=== PATIENT | male | born 1950 | race Caucasian/White ===

== ENCOUNTER 2024-09-04 19:28 | Observation (INO) | payer MEDICARE, SELFPAY ==
[2024-09-04 22:08] VITALS: BMI 42.2
[2024-09-04 22:20] VITALS: BP 131/81; PULSE 79; TEMP 36.8; O2SAT 93
[2024-09-04 22:58] LABS: Glucometer 161 mg/dL (74-106)
[2024-09-05 03:50] VITALS: BP 133/76; PULSE 80; TEMP 36.6; O2SAT 94
[2024-09-05] MEDS: OXYBUTYNIN chloride 5 MG TABLET PO ×2 (05:21→21:26)
[2024-09-05 06:27] LABS: Basophils Absolute Auto 0.1 10^3/uL (0.0-0.1); Eosinophils Absolute Auto 0.5 10^3/uL (0.0-0.7); Eosinophils Percent Auto 6.9 % (0.9-7.0); Hematocrit 44.6 % (42.0-54.0); Hemoglobin 14.8 g/dL (14.0-18.0); Immature Granulocytes Abs Auto 0.02 10^3/uL (0.00-0.03); Immature Granulocytes Pct Auto 0.3 % (0.0-0.5); Lymphocytes Absolute Auto 1.2 10^3/uL (1.2-3.8); Lymphocytes Percent Auto 16.5 % (20.5-60.0); Mean Corpuscular HGB Conc 33.2 g/dL (29.9-35.2); Mean Corpuscular Hemoglobin 31.8 pg (25.9-34.0); Mean Corpuscular Volume 95.7 fL (80.0-94.0); Mean Platelet Volume 10.3 fL (9.5-13.5); Monocytes Absolute Auto 1.3 10^3/uL (0.3-0.8); Monocytes Percent Auto 18.5 % (1.7-12.0); Neutrophils Absolute Auto 4.1 10^3/uL (1.4-6.5); Neutrophils Percent Auto 56.8 % (43.0-75.0); Platelet Count 171 10^3/uL (150-450); Red Blood Count 4.66 10^6/uL (4.70-6.10); Red Cell Distribution Width 14.1 % (11.0-15.0); White Blood Count 7.2 10^3/uL (4.0-11.0)
[2024-09-05 06:44] LABS: Alanine Aminotransferase 26 U/L (16-63); Albumin Globulin Ratio 0.6; Albumin Level 2.9 g/dL (3.4-5.0); Alkaline Phosphatase 81 U/L (46-116); Anion Gap 13.5; Aspartate Amino Transferase 54 U/L (15-37); BUN Creatinine Ratio 12.4; Bilirubin Total 1.1 mg/dL (0.2-1.0); Calcium 9.1 mg/dL (8.5-10.1); Carbon Dioxide 26.7 mmol/L (21.0-32.0); Chloride 98 mmol/L (98-107); Estimated GFR (African America >60 (>=60 mL/min/1.73m^2); Estimated GFR (Non-African Ame 51 (>=60 mL/min/1.73m^2); Globulin 5.1 g/dL; Glucose 155 mg/dL (74-106); Potassium 4.2 mmol/L (3.5-5.1); Sodium 134 mmol/L (136-145)
[2024-09-05 07:28] LABS: Glucometer 173 mg/dL (74-106)
[2024-09-05 07:37] VITALS: BP 131/78; PULSE 80; TEMP 36.9; O2SAT 93
[2024-09-05] MEDS: INSULIN ASPART 300 UNIT/3 ML PEN SUBQ ×3 (07:58→21:26)
[2024-09-05] MEDS: CHOLECALCIFEROL (VITAMIN D3) 25 MCG/1,000 UNITS TABLET PO ×2 (08:12→21:26)
[2024-09-05] MEDS: CLOPIDOGREL BISULFATE 75 MG TABLET PO (08:13)
[2024-09-05] MEDS: ACETAMINOPHEN 325 MG TABLET 650 MG PO ×2 (08:24→19:31)
--- NOTE | 2024-09-05 10:54 | CM.NOTE ---
Rounds made with Dr. Carrillo, discussed with pt and son reason for admission to hospital and plan of care. Pt will have PT and OT evaluate pt today for discharge planning. Pt is open to skilled therapy at discharge, son verbalizes pt has had some falls recently at home and is concerned with pt's increased weakness.
--- NOTE | 2024-09-05 11:34 | CM.NOTE ---
Medicare Outpatient Observation Notice discussed with pt, pt verbalizes understanding and signs paper. Original given to pt and copy placed on pt's chart.
[2024-09-05] MEDS: CEFTRIAXONE 1,000 MG in 0.9 % SODIUM CHLORIDE 50 ML 100 MG IV (12:13)
[2024-09-05] MEDS: LACTATED RINGER'S SOLUTION 1,000 ML 100 ML IV (12:13)
[2024-09-05 12:18] LABS: Glucometer 169 mg/dL (74-106)
--- NOTE | 2024-09-05 12:25 | P.HP_ITS ---
HPI H&P: HPI History of Present Illness Chief complaint: UTI Narrative: 73-year-old male who currently lives at home was transferred from outside hospital. He originally presented to ER for generalized weakness and confusion. The reason for the transfer was no bed availability for admission. According to the report, patient has been increasingly weak, tired and is staying in bed for past 2 to 3 days. It was reported that his urine has been darker and foul- smelling. He had 1 episode of vomiting at the day he presented to ED. Otherwise he denies any active complaints. According to ED report, patient could tell only his name but otherwise he was unable to provide any meaningful information and was confused. Patient has prior history of stroke with right- sided weakness along with aphasia/dysarthria. Workup in ER included CT head/urine drug screen, urine analysis along with CBC/CMP that revealed no acute finding other than urinary tract infection. Patient started on IV Rocephin and admitted for change in mentation/metabolic encephalopathy likely secondary to dehydration/generalized weakness and UTI. Patient was seen earlier today and he reports feeling overall better. His mentation is at his baseline and he has no confusion. He feels overall weak. Denies chest pain, shortness of breath, abdominal pain, constipation, diarrhea, fever, chills. Opioid HPI Opioid Management Most Recent Pain and Opioid Data: Last Pain Scale 3 09/05/24 10:48 09/05/24 Last Pain Intensity 3 09/05/24 10:48 09/05/24 Last Pain Assessment 09/05/24 10:49 Last MAR Pain Assessment 09/05/24 10:29 Last ORT Total Score 0 09/04/24 22:08 09/04/24 Last ORT Risk Category Low Risk 09/04/24 22:08 09/04/24 Review of Systems ROS Status of ROS 10 or more systems reviewed and unremark able except as noted in history and below [facility] Medical History (Updated 09/05/24 @ 12:32 by Shaikh Gerardo MD) H/O stroke without residual deficits ?Z86.73 - Personal history of transient ischemic attack (TIA), and cerebral infarction without residual deficits (ICD-10) Iron deficiency anemia ?D50.9 - Iron deficiency anemia, unspecified (ICD-10) Hard of hearing ?H91.90 - Unspecified hearing loss, unspecified ear (ICD-10) Vertigo ?R42 - Dizziness and giddiness (ICD-10) Diabetes ?E11.9 - Type 2 diabetes mellitus without complications (ICD-10) Restrictive lung disease ?J98.4 - Other disorders of lung (ICD-10) Restless leg syndrome ?G25.81 - Restless legs syndrome (ICD-10) Atrial fibrillation ?I48.91 - Unspecified atrial fibrillation (ICD-10) Sleep apnea ?G47.30 - Sleep apnea, unspecified (ICD-10) Overactive bladder ?N32.81 - Overactive bladder (ICD-10) Obesity ?E66.9 - Obesity, unspecified (ICD-10) Lumbar radiculopathy ?M54.16 - Radiculopathy, lumbar region (ICD-10) Insomnia ?G47.00 - Insomnia, unspecified (ICD-10) Hypertension ?I10 - Essential (primary) hypertension (ICD-10) Hyperlipidemia ?E78.5 - Hyperlipidemia, unspecified (ICD-10) Pulmonary embolism ?I26.99 - Other pulmonary embolism without acute cor pulmonale (ICD-10) CVA (cerebral vascular accident) ?I63.9 - Cerebral infarction, unspecified (ICD-10) Hemiparesis ?G81.90 - Hemiplegia, unspecified affecting unspecified side (ICD-10) Weakness ?R53.1 - Weakness (ICD-10) Eczema ?L30.9 - Dermatitis, unspecified (ICD-10) Diastolic dysfunction ?I51.89 - Other ill-defined heart diseases (ICD-10) Cervical spinal stenosis ?M48.02 - Spinal stenosis, cervical region (ICD-10) CAD (coronary artery disease) ?I25.10 - Atherosclerotic heart disease of [place] coronary artery without angina pectoris (ICD-10) BPH (benign prostatic hyperplasia) ?N40.0 - Benign prostatic hyperplasia without lower urinary tract symptoms (ICD-10) Surgical History (Updated 09/04/24 @ 22:40 by Marlin Gonzales) H/O cystoscopy ?Z98.890 - Other specified postprocedural states (ICD-10) History of knee replacement ?Z96.659 - Presence of unspecified artificial knee joint (ICD-10) H/O carotid endarterectomy ?Z98.890 - Other specified postprocedural states (ICD-10) History of appendectomy ?Z90.49 - Acquired absence of other specified parts of digestive tract (ICD- 10) Hx of CABG ?Z95.1 - Presence of aortocoronary bypass graft (ICD-10) Family History (Updated 09/04/24 @ 22:44 by Marlin Gonzales) Brother Family history of CHF (congestive heart failure) Family history of diabetes mellitus Sister Family history of cancer Family history of diabetes mellitus Mother Family history of myocardial infarction Social History (Updated 09/04/24 @ 22:42 by Marlin Gonzales) Within the past year, how often did you have a drink containing alcohol: monthly or less Within the past year, how many standard drinks containing alcohol did you have on a typical day: 1 or 2 Total score: 0 Score interpretation: A score less than 4 is consistent with normal alcohol consumption. Smoking status: Never smoker Non-prescribed substance use: denies use Previous occupational history: retired Highest level of school completed/degree received: high school graduate Little interest or pleasure in doing things: not at all Feeling down, depressed, or hopeless: not at all Do you think of yourself as: straight/heterosexual Gender Identity: male Meds Home Medications and Allergies Home Medications ?Medication ?Instructions ?Recorded ?Confirmed ?Type atorvastatin 20 mg tablet (Lipitor) 20 mg PO QPM 09/04/24 09/04/24 History cholecalciferol (vitamin D3) 25 25 mcg PO BID 09/04/24 09/04/24 History mcg (1,000 unit) tablet (Vitamin D3) clopidogrel 75 mg tablet (Plavix) 75 mg PO DAILY 09/04/24 09/04/24 History furosemide 40 mg tablet (Lasix) 40 mg PO DAILY 09/04/24 09/04/24 History gabapentin 300 mg capsule 300 mg PO TID 09/04/24 09/04/24 History lisinopril 2.5 mg tablet 2.5 mg PO DAILY 09/04/24 09/04/24 History meclizine 12.5 mg tablet 12.5 mg PO TID PRN dizziness 09/04/24 09/04/24 History metformin 500 mg tablet,extended 500 mg PO DAILY 09/04/24 09/04/24 History release 24hr (osmotic) ondansetron 4 mg disintegrating 4 mg PO Q6H PRN nausea and vomiting 09/04/24 09/04/24 History tablet oxybutynin chloride 5 mg tablet 5 mg PO TID 09/04/24 09/04/24 History polyethylene glycol 3350 17 17 g PO DAILY PRN constipation 09/04/24 09/04/24 History gram/dose oral powder (Miralax) sulfamethoxazole 800 1 tab PO Q12H 09/04/24 09/04/24 History mg-trimethoprim 160 mg tablet trazodone 50 mg tablet 50 mg PO .hs 09/04/24 09/04/24 History Allergies Allergy/AdvReac Type Severity Reaction Status Date / Time adhesive tape Allergy Mild Rash Verified 09/04/24 22:28 Exam Constitutional Vital Signs, click to edit/add: Last Vital Signs Temp 98.4 F 09/05/24 07:37 Pulse 80 09/05/24 07:37 Resp 18 09/05/24 07:37 BP 131/78 09/05/24 07:37 Pulse Ox 93 L 09/05/24 07:37 O2 Del Method Room Air 09/05/24 07:37 Documenting provider has reviewed patient's vital signs: yes Common normals: no apparent distress and oriented x3 General appearance: cooperative HENMT Common normals: normocephalic and head/scalp atraumatic Head and scalp: normocephalic and atraumatic Eye Common normals: conjunctivae normal and no scleral icterus Conjunctiva: conjunctiva(e) normal Respiratory Common normals: normal respiratory effort and clear to auscultation bilaterally Effort & inspection: able to speak in complete sentences Auscultation: clear to auscultation bilaterally Cardio Common normals: regular rate, S1 normal heart sound and S2 normal heart sound Rate: regular rate Heart sounds: S1 normal and S2 normal GI Common normals: Normal to inspection, nondistended, normoactive bowel sounds present, soft to palpation, non-tender and no hepatosplenomegaly Palpation: soft and no hepatosplenomegaly Extremity Common normals: no clubbing, cyanosis or edema Neuro Common normals: oriented x3 Other: Mild dysarthria noted. RLE weakness. Psych Common normals: mental status grossly normal, denies hallucinations, denies homicidal ideation and denies suicidal ideation Results Labs Labs: Short CBC 09/05/24 Range/Units 05:51 WBC 7.2 (4.0-11.0) 10^3/uL Hgb 14.8 (14.0-18.0) g/dL Hct 44.6 (42.0-54.0) % Plt Count 171 (150-450) 10^3/uL BMP 09/05/24 05:51 Sodium 134 L Potassium 4.2 Chloride 98 Carbon Dioxide 26.7 BUN 17.0 Creatinine 1.37 H Glucose 155 H Calcium 9.1 Liver Function 09/05/24 Range/Units 05:51 Total Bilirubin 1.1 H (0.2-1.0) mg/dL AST 54 H (15-37) U/L ALT 26 (16-63) U/L Alkaline Phosphatase 81 (46-116) U/L Albumin 2.9 L (3.4-5.0) g/dL Assessment and Plan Assessment and Plan (1) UTI (urinary tract infection): Assessment and Plan: Started patient on IV Rocephin. Follow-up urine cultures. Qualifiers: Urinary tract infection type: acute cystitis Hematuria presence: without hematuria Qualified Code(s): N30.00 - Acute cystitis without hematuria (2) Generalized weakness: Assessment and Plan: PT/OT evaluation. Will likely need shelter facility placement once medically stable for discharge. (3) H/O stroke without residual deficits: Assessment and Plan: Patient has residual right upper and lower extremity weakness. PT/OT evaluation. Continue with statin, Plavix. (4) CAD (coronary artery disease): Assessment and Plan: No evidence of active cardiac ischemia. Continue with Plavix, statin Qualifiers: Coronary Disease-Associated Artery/Lesion type: [place] artery [place] vs. transplanted heart: [place] heart Associated angina: without angina Qualified Code(s): I25.10 - Atherosclerotic heart disease of [place] coronary artery without angina pectoris (5) Diabetes: Assessment and Plan: Sliding scale sling while inpatient. Qualifiers: Diabetes mellitus type: type 2 Diabetes mellitus intermediate insulin use: without remote computer terminal operator use Diabetes mellitus complication status: without complication Qualified Code(s): E11.9 - Type 2 diabetes mellitus without complications (6) Hemiparesis: Assessment and Plan: Chronic, unchanged. PT/OT Qualifiers: Hemiparesis etiology: late effect of cerebrovascular disease Cerebrovascular disease type: cerebral infarction Hemiparesis laterality: right dominant side Qualified Code(s): 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 (7) Hypertension: Assessment and Plan: Hold lisinopril for now. Continue with IV hydration. Monitor blood pressure. Qualifiers: Hypertension type: primary hypertension Qualified Code(s): I10 - Essential (primary) hypertension (8) Hyperlipidemia: Assessment and Plan: Continue Lipitor Qualifiers: Hyperlipidemia type: unspecified Qualified Code(s): E78.5 - Hyperlipidemia, unspecified Urinary Catheter Management Urinary Catheter Management Pure Wick: Cath placed during this visit: yes Urethral indwelling: No Insertion date: 09/04/24 Insertion time: 18:00
--- NOTE | 2024-09-05 12:32 | SWNOTE1 ---
SW spoke to case management and pt was at [facility] in past and does need rehab and pt/family would like the [facility]. LUIS spoke to Raeann at [facility] and she voiced to send referral over. Referral sent to [facility]. Referral included face sheet, paperwork from [facility], case management report, nursing notes, diagnostic imaging, med list, and PT notes.
[2024-09-05 14:36] VITALS: BP 147/78; PULSE 76; TEMP 36.6; O2SAT 93
--- NOTE | 2024-09-05 14:56 | SWNOTE1 ---
[facility] was able to accept, but LUIS received a phone call from Milli at [facility]. She states she spoke with pt's sister and they goal is for [facility] to [facility]. She stated pt could also benefit from going to a facility that has VA benefits as the [facility] does not. If pt goes past 20 days then he will have a co-pay if he does not go to facility with VA benefits. She stated the closest is [facility]. She also stated that LUIS needs to print VA home curry off for pt and sister. LUIS requested Milli send her one as LUIS does not have most recent. Milli to send. LUIS spoke to pt, pt's sister, and pt's son in room. Pt's son was on phone. LUIS explained to everyone the benefit of going to facility with VA benefits and the closest one being [facility] in [place]. Pt's son and pt agreed they want SW to try there first. [facility] second. They did voice the [facility] [place]. LUIS did [facility] and provided to sister. Pt's sister did ask for assistance in filling out, but LUIS advised she will need his medical background and also all of financial information. She stated she will give to pt's son. Milli did tell pt's sister that there is not much of a delay at this time getting people in to [facility] home. LUIS then advised pt, pt's sister, and pt's son that LUIS has to reach out to [facility] and see if they have openings. LUIS called and emailed Isela at [facility], she will review and let LUIS know. LUIS updated Milli and she voiced she will need a form completed and will need information sent to her. She will then submit and be in contact with Isela robles then Isela and LUIS will coordinate discharge. Pt will need to get approved.
--- NOTE | 2024-09-05 15:12 | SWNOTE1 ---
Referral has been sent to [facility] and Milli at [facility] for them to review.
--- NOTE | 2024-09-05 15:25 | SWNOTE1 ---
SW spoke to M[facility] at [facility]. SW had to forward the information on to [facility] and they have to approve and pt's VA doctor has to approve. Milli will continue to check in and let SW know when they have the approval. LUIS waiting to hear from Isela at [facility] as well.
[2024-09-05 17:48] VITALS: BP 90/52; PULSE 66; TEMP 36.5; O2SAT 93
[2024-09-05] MEDS: ATORVASTATIN CALCIUM 20 MG TABLET PO (19:31)
[2024-09-05 19:39] VITALS: BP 101/67; PULSE 79; TEMP 36.7; O2SAT 90
[2024-09-05 20:09] LABS: Glucometer 166 mg/dL (74-106)
[2024-09-05] MEDS: TRAZODONE HCL 50 MG TABLET PO (21:26)
[2024-09-05 23:04] VITALS: BP 133/73; PULSE 67; TEMP 36.4; O2SAT 93
[2024-09-06] MEDS: ACETAMINOPHEN 325 MG TABLET 650 MG PO ×3 (03:07→21:11)
[2024-09-06 03:11] VITALS: BP 113/64; PULSE 76; TEMP 36.3; O2SAT 92
[2024-09-06] MEDS: LACTATED RINGER'S SOLUTION 1,000 ML 100 ML IV (05:05)
[2024-09-06] MEDS: OXYBUTYNIN chloride 5 MG TABLET PO ×3 (05:05→21:11)
[2024-09-06 05:55] LABS: Basophils Absolute Auto 0.1 10^3/uL (0.0-0.1); Eosinophils Absolute Auto 0.5 10^3/uL (0.0-0.7); Eosinophils Percent Auto 7.7 % (0.9-7.0); Hematocrit 39.5 % (42.0-54.0); Immature Granulocytes Abs Auto 0.02 10^3/uL (0.00-0.03); Immature Granulocytes Pct Auto 0.3 % (0.0-0.5); Lymphocytes Absolute Auto 2.9 10^3/uL (1.2-3.8); Lymphocytes Percent Auto 49.8 % (20.5-60.0); Mean Corpuscular HGB Conc 32.9 g/dL (29.9-35.2); Mean Corpuscular Hemoglobin 31.6 pg (25.9-34.0); Mean Corpuscular Volume 96.1 fL (80.0-94.0); Monocytes Percent Auto 16.7 % (1.7-12.0); Neutrophils Absolute Auto 1.4 10^3/uL (1.4-6.5); Neutrophils Percent Auto 24.5 % (43.0-75.0); Platelet Count 158 10^3/uL (150-450); Red Blood Count 4.11 10^6/uL (4.70-6.10); Red Cell Distribution Width 13.8 % (11.0-15.0); White Blood Count 5.9 10^3/uL (4.0-11.0)
[2024-09-06 06:14] LABS: Alanine Aminotransferase 18 U/L (16-63); Albumin Globulin Ratio 0.6; Albumin Level 2.5 g/dL (3.4-5.0); Alkaline Phosphatase 74 U/L (46-116); Anion Gap 12.6; Aspartate Amino Transferase 45 U/L (15-37); BUN Creatinine Ratio 14.5; Bilirubin Total 0.7 mg/dL (0.2-1.0); Calcium 8.6 mg/dL (8.5-10.1); Carbon Dioxide 24.4 mmol/L (21.0-32.0); Chloride 101 mmol/L (98-107); Estimated GFR (African America >60 (>=60 mL/min/1.73m^2); Estimated GFR (Non-African Ame >60 (>=60 mL/min/1.73m^2); Globulin 4.3 g/dL; Glucose 140 mg/dL (74-106); Sodium 134 mmol/L (136-145); Total Protein 6.8 g/dL (6.4-8.2)
[2024-09-06] MEDS: CLOPIDOGREL BISULFATE 75 MG TABLET PO (08:24)
[2024-09-06] MEDS: CHOLECALCIFEROL (VITAMIN D3) 25 MCG/1,000 UNITS TABLET PO ×2 (08:24→20:03)
[2024-09-06] MEDS: POLYETHYLENE GLYCOL 3350 17 GM POWDER PACKET PO (08:26)
[2024-09-06 08:44] VITALS: BP 136/86; PULSE 76; TEMP 36.4; O2SAT 97
--- NOTE | 2024-09-06 10:12 | PM.IMPN1 ---
Progress Note: A&P Assessment and Plan (1) UTI (urinary tract infection): Assessment and Plan: Continue with IV Rocephin. Follow-up urine cultures. Qualifiers: Urinary tract infection type: acute cystitis Hematuria presence: without hematuria Qualified Code(s): N30.00 - Acute cystitis without hematuria (2) Generalized weakness: Assessment and Plan: Secondary to UTI and dehydration. Continue with PT/OT. Will need placement for rehab (3) H/O stroke without residual deficits: Assessment and Plan: Continue with PT/OT. Continue with Plavix, statin (4) CAD (coronary artery disease): Assessment and Plan: No evidence of active cardiac ischemia. Monitor. Qualifiers: Coronary Disease-Associated Artery/Lesion type: [place] artery [place] vs. transplanted heart: [place] heart Associated angina: without angina Qualified Code(s): I25.10 - Atherosclerotic heart disease of [place] coronary artery without angina pectoris (5) Diabetes: Assessment and Plan: Sliding scale insulin while inpatient. Qualifiers: Diabetes mellitus type: type 2 Diabetes mellitus residential insulin use: without residential use Diabetes mellitus complication status: without complication Qualified Code(s): E11.9 - Type 2 diabetes mellitus without complications (6) Hemiparesis: Assessment and Plan: PT/OT. Will need rehab placement Qualifiers: Hemiparesis etiology: late effect of cerebrovascular disease Cerebrovascular disease type: cerebral infarction Hemiparesis laterality: right dominant side Qualified Code(s): 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 (7) Hypertension: Assessment and Plan: Blood pressure is stable. Monitor. Qualifiers: Hypertension type: primary hypertension Qualified Code(s): I10 - Essential (primary) hypertension (8) Hyperlipidemia: Assessment and Plan: continue With Lipitor Qualifiers: Hyperlipidemia type: unspecified Qualified Code(s): E78.5 - Hyperlipidemia, unspecified Internal Medicine - PN: Subj Subjective Interval history: Seen and examined. No overnight events. Doing well overall. Exam Constitutional Vital Signs, click to edit/add: Last Vital Signs Temp 97.6 F 09/06/24 08:44 Pulse 76 09/06/24 08:44 Resp 18 09/06/24 08:44 BP 136/86 09/06/24 08:44 Pulse Ox 97 09/06/24 08:44 O2 Del Method Room Air 09/06/24 08:44 Documenting provider has reviewed patient's vital signs: yes Common normals: no apparent distress and oriented x3 General appearance: cooperative Respiratory Common normals: normal respiratory effort and clear to auscultation bilaterally Effort & inspection: able to speak in complete sentences Auscultation: clear to auscultation bilaterally Cardio Common normals: regular rate, S1 normal heart sound and S2 normal heart sound Rate: regular rate Heart sounds: S1 normal and S2 normal Extremity Common normals: no clubbing, cyanosis or edema Neuro Common normals: oriented x3 Other: Mild dysarthria noted. RLE weakness. Psych Common normals: mental status grossly normal, denies hallucinations, denies homicidal ideation and denies suicidal ideation Internal Medicine - PN: Obj Da Labs Labs: Laboratory Results - last 24 hr 09/05/24 09/05/24 09/06/24 12:15 20:07 05:42 WBC 5.9 RBC 4.11 L Hgb 13.0 L Hct 39.5 L MCV 96.1 H MCH 31.6 MCHC 32.9 RDW 13.8 Plt Count 158 MPV 10.0 Neut % (Auto) 24.5 L Lymph % (Auto) 49.8 [place] % (Auto) 16.7 H Eos % (Auto) 7.7 H Baso % (Auto) 1.0 Neut # (Auto) 1.4 Lymph # (Auto) 2.9 [place] # (Auto) 1.0 H Eos # (Auto) 0.5 Baso # (Auto) 0.1 Abs Immat Gran (auto) 0.02 Imm/Tot Granulo (auto) 0.3 Sodium 134 L Potassium 4.0 Chloride 101 Carbon Dioxide 24.4 Anion Gap 12.6 BUN 17.0 Creatinine 1.17 Est GFR ( Amer) >60 Est GFR (Non-Af Amer) >60 BUN/Creatinine Ratio 14.5 Glucose 140 H Calcium 8.6 Total Bilirubin 0.7 AST 45 H ALT 18 Alkaline Phosphatase 74 Total Protein 6.8 Albumin 2.5 L Globulin 4.3 Albumin/Globulin Ratio 0.6 POC Glucose 169 H 166 H Urinary Catheter Management Urinary Catheter Management Pure Wick: Cath placed during this visit: yes Urethral indwelling: No Insertion date: 09/04/24 Insertion time: 18:00
[2024-09-06 10:32] LABS: Glucometer 287 mg/dL (74-106)
--- NOTE | 2024-09-06 10:54 | REH.PTDLY ---
Physical Therapy Daily Note PT Daily Note/Assess Start: 09/05/24 10:48 Freq: Status: Active Protocol: Document 09/06/24 10:14 TOBY (Rec: 09/06/24 10:54 TOBY [id number]) Physical Therapy Daily Note/Assessment Time In 09:57 Time Out 10:14 Subjective Pt in bed upon arrival agreeable to therapy. Therapeutic Exercise 8 Minutes (minutes) Therapeutic Exercise 0 Units Therapeutic Exercise Instructed in B LE supine exs with AA needed for AP due Treatment to weakness and lack of mobility at ankle. Hip abd slides, heel slides, and SLR 10x ea AA. Pt has more mobility with L LE compared to R LE. Pt complains of some discomfort in L hip with exs. Sitting bedside instructed pt in B LE LAQ 10x ea Therapeutic Activity 9 Minutes (minutes) Therapeutic Activity 1 Units Therapeutic Activity Supine to sit transfers Max A x2 with several cues Comments given for arm placement for pt to assist. Sit to stand transfers Max A x2 with blocking or R foot to prevent sliding. Pt able to ambulate with RW taking small side steps today Min A x2 for support with verbal cues. Pt takes about 7 small steps to get to HOB. Pt requires Min A with sit to supine transfers. Total Therapy 17 Minutes Total Physical 1 Therapy Units Daily Note Summary Pt does better today with standing tolerance and being able to take small side steps to HOB with assistance. Pt does fatigue easily with this and requires Max A x 2 with transfers out of bed and standing. Pt would benefit from SNF stay at this time to improve strength for ease of transfers at home.
[2024-09-06] MEDS: CEFTRIAXONE 1,000 MG in 0.9 % SODIUM CHLORIDE 50 ML 100 MG IV (11:06)
[2024-09-06] MEDS: 0.9 % SODIUM CHLORIDE 250 ML 10 ML IV (11:06)
[2024-09-06 11:30] VITALS: BP 123/65; PULSE 77; TEMP 36.4; O2SAT 91
[2024-09-06] MEDS: INSULIN ASPART 300 UNIT/3 ML PEN SUBQ ×2 (12:38→17:53)
[2024-09-06 16:27] VITALS: BP 135/76; PULSE 76; TEMP 36.4; O2SAT 93
[2024-09-06 16:35] LABS: Glucometer 144 mg/dL (74-106)
[2024-09-06 19:11] LABS: Glucometer 129 mg/dL (74-106)
[2024-09-06 19:16] VITALS: BP 123/65; PULSE 74; TEMP 36.6; O2SAT 92
[2024-09-06] MEDS: ATORVASTATIN CALCIUM 20 MG TABLET PO (20:02)
[2024-09-06] MEDS: TRAZODONE HCL 50 MG TABLET PO (21:11)
[2024-09-06 22:53] VITALS: BP 116/77; PULSE 60; TEMP 36.4; O2SAT 93
[2024-09-07] MEDS: ACETAMINOPHEN 325 MG TABLET 650 MG PO ×2 (01:50→08:59)
[2024-09-07 03:16] VITALS: BP 127/74; PULSE 70; TEMP 36.5; O2SAT 94
[2024-09-07] MEDS: OXYBUTYNIN chloride 5 MG TABLET PO ×3 (05:36→21:20)
[2024-09-07 06:21] LABS: Hematocrit 41.9 % (42.0-54.0); Hemoglobin 13.9 g/dL (14.0-18.0); Mean Corpuscular HGB Conc 33.2 g/dL (29.9-35.2); Mean Corpuscular Hemoglobin 31.7 pg (25.9-34.0); Mean Corpuscular Volume 95.4 fL (80.0-94.0); Platelet Count 170 10^3/uL (150-450); Red Blood Count 4.39 10^6/uL (4.70-6.10); Red Cell Distribution Width 13.5 % (11.0-15.0); White Blood Count 7.9 10^3/uL (4.0-11.0)
[2024-09-07 06:41] LABS: Alanine Aminotransferase 24 U/L (16-63); Albumin Globulin Ratio 0.6; Albumin Level 2.5 g/dL (3.4-5.0); Alkaline Phosphatase 72 U/L (46-116); Anion Gap 14.7; Aspartate Amino Transferase 47 U/L (15-37); BUN Creatinine Ratio 12.5; Bilirubin Total 0.7 mg/dL (0.2-1.0); Calcium 8.8 mg/dL (8.5-10.1); Carbon Dioxide 22.5 mmol/L (21.0-32.0); Chloride 101 mmol/L (98-107); Estimated GFR (African America >60 (>=60 mL/min/1.73m^2); Estimated GFR (Non-African Ame >60 (>=60 mL/min/1.73m^2); Globulin 4.4 g/dL; Glucose 141 mg/dL (74-106); Potassium 4.2 mmol/L (3.5-5.1); Sodium 134 mmol/L (136-145); Total Protein 6.9 g/dL (6.4-8.2)
[2024-09-07 06:45] LABS: Atypical Lymphocytes Abs Man 0.07; Basophils Abs Manual 0.07 10^3/uL (0.00-0.10); Eosinophils Absolute Manual 0.31 10^3/uL (0.00-0.70); Lymphocytes Absolute Manual 4.66 10^3/uL (1.20-3.80); Monocytes Absolute Manual 0.63 10^3/uL (0.30-0.80); Segmented Neut Absolute Manual 2.13 10^3/uL (1.4-6.5)
[2024-09-07 08:09] VITALS: BP 148/82; PULSE 58; TEMP 36.4; O2SAT 92
[2024-09-07 08:59] VITALS: TEMP 36.4
[2024-09-07] MEDS: CLOPIDOGREL BISULFATE 75 MG TABLET PO (08:59)
[2024-09-07] MEDS: CHOLECALCIFEROL (VITAMIN D3) 25 MCG/1,000 UNITS TABLET PO ×2 (08:59→21:20)
--- NOTE | 2024-09-07 10:47 | PM.IMPN1 ---
Progress Note: A&P Assessment and Plan (1) UTI (urinary tract infection): Assessment and Plan: Switch to oral cefdinir. Follow-up urine cultures Qualifiers: Urinary tract infection type: acute cystitis Hematuria presence: without hematuria Qualified Code(s): N30.00 - Acute cystitis without hematuria (2) Generalized weakness: Assessment and Plan: Secondary to UTI and dehydration. Continue with PT/OT. Patient has poor functional status, very unstable and requires two-person assist to ambulate. Patient will need rehab upon discharge (3) H/O stroke without residual deficits: Assessment and Plan: Continue with PT/OT. Continue with Plavix, statin (4) CAD (coronary artery disease): Assessment and Plan: No evidence of active cardiac ischemia. Monitor. Qualifiers: Coronary Disease-Associated Artery/Lesion type: [place] artery [place] vs. transplanted heart: [place] heart Associated angina: without angina Qualified Code(s): I25.10 - Atherosclerotic heart disease of [place] coronary artery without angina pectoris (5) Diabetes: Assessment and Plan: Sliding scale insulin while inpatient. Qualifiers: Diabetes mellitus type: type 2 Diabetes mellitus fireproof door maker insulin use: without fireproof door maker use Diabetes mellitus complication status: without complication Qualified Code(s): E11.9 - Type 2 diabetes mellitus without complications (6) Hemiparesis: Assessment and Plan: PT/OT. Will need rehab placement Qualifiers: Hemiparesis etiology: late effect of cerebrovascular disease Cerebrovascular disease type: cerebral infarction Hemiparesis laterality: right dominant side Qualified Code(s): 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 (7) Hypertension: Assessment and Plan: Blood pressure is stable. Monitor. Qualifiers: Hypertension type: primary hypertension Qualified Code(s): I10 - Essential (primary) hypertension (8) Hyperlipidemia: Assessment and Plan: continue With Lipitor Qualifiers: Hyperlipidemia type: unspecified Qualified Code(s): E78.5 - Hyperlipidemia, unspecified Internal Medicine - PN: Subj Subjective Interval history: Seen and examined. No overnight events. Doing well overall. Exam Constitutional Vital Signs, click to edit/add: Last Vital Signs Temp 97.6 F 09/07/24 08:59 Pulse 58 L 09/07/24 08:09 Resp 20 09/07/24 08:09 BP 148/82 H 09/07/24 08:09 Pulse Ox 92 L 09/07/24 08:09 O2 Del Method Room Air 09/07/24 08:09 Documenting provider has reviewed patient's vital signs: yes Common normals: no apparent distress and oriented x3 General appearance: cooperative Respiratory Common normals: normal respiratory effort and clear to auscultation bilaterally Effort & inspection: able to speak in complete sentences Auscultation: clear to auscultation bilaterally Cardio Common normals: regular rate, S1 normal heart sound and S2 normal heart sound Rate: regular rate Heart sounds: S1 normal and S2 normal Extremity Common normals: no clubbing, cyanosis or edema Neuro Common normals: oriented x3 Other: Mild dysarthria noted. RLE weakness. Psych Common normals: mental status grossly normal, denies hallucinations, denies homicidal ideation and denies suicidal ideation Internal Medicine - PN: Obj Da Labs Labs: Laboratory Results - last 24 hr 09/06/24 09/06/24 09/07/24 16:29 19:10 06:03 WBC 7.9 RBC 4.39 L Hgb 13.9 L Hct 41.9 L MCV 95.4 H MCH 31.7 MCHC 33.2 RDW 13.5 Plt Count 170 MPV 10.0 Seg Neuts % (Manual) 27.0 L Lymphocytes % (Manual) 59.0 Atypical Lymphs % (Man) 1.0 Monocytes % (Manual) 8.0 Eosinophils % (Manual) 4.0 Basophils % (Manual) 1.0 Neutrophils # (Manual) 2.13 Lymphocytes # (Manual) 4.66 H Abs Atypical Lymphs Man 0.07 Monocytes # (Manual) 0.63 Eosinophils # (Manual) 0.31 Basophils # (Manual) 0.07 Sodium 134 L Potassium 4.2 Chloride 101 Carbon Dioxide 22.5 Anion Gap 14.7 BUN 12.0 Creatinine 0.96 Est GFR ( Amer) >60 Est GFR (Non-Af Amer) >60 BUN/Creatinine Ratio 12.5 Glucose 141 H Calcium 8.8 Total Bilirubin 0.7 AST 47 H ALT 24 Alkaline Phosphatase 72 Total Protein 6.9 Albumin 2.5 L Globulin 4.4 Albumin/Globulin Ratio 0.6 POC Glucose 144 H 129 H Urinary Catheter Management Urinary Catheter Management Pure Wick: Cath placed during this visit: yes Urethral indwelling: No Insertion date: 09/04/24 Insertion time: 18:00
[2024-09-07 10:49] LABS: Glucometer 283 mg/dL (74-106)
--- NOTE | 2024-09-07 10:49 | XR_ITS ---
[facility] [place] [id number] Patient Name: FESTUS DAY MRN: [id number] date: 1950 Sex: M Assigned Patient Location: [place] Current Patient Location: [place] Accession/Order Number: [id number] Exam Date: 09/08/2024 10:07 Report Date: 09/08/2024 10:10 At the request of: SHAIKH AN MIGUEL Procedure: XR hip LT 2V w/ pelvis LEFT HIP WITH AP PELVIS - 3 views COMPARISON: None available CLINICAL DATA: Left hip pain. No history of injury. AP view of the pelvis as well as AP and frog-lateral views of the left hip were obtained. There is osteopenia. No acute fracture or dislocation is identified. The hip joint spaces are symmetric. There is no significant hypertrophy. There is mild enthesophyte formation at the iliac crests and ischial tuberosities. Mild sclerosis is seen at the SI joints. Degenerative changes are visualized at the lower imaged lumbar spine. Atherosclerotic disease is noted. There is evidence of prior urolift procedure. XR/XR hip LT 2V w/ pelvis IMPRESSION: NO ACUTE BONY FINDINGS. Impression dictated by: Mayra Hernandez M.D.09/08/2024 10:10 AM Dictation Location: [employer] Electronically authenticated by: [id number] Y Date: 09/08/2024 10:10
[2024-09-07] MEDS: CEFTRIAXONE 1,000 MG in 0.9 % SODIUM CHLORIDE 50 ML 100 MG IV (10:50)
[2024-09-07] MEDS: INSULIN ASPART 300 UNIT/3 ML PEN SUBQ ×2 (12:07→17:33)
[2024-09-07 14:26] VITALS: BP 134/72; PULSE 63; TEMP 36.7; O2SAT 94
[2024-09-07 16:22] LABS: Glucometer 148 mg/dL (74-106)
[2024-09-07 19:32] LABS: Glucometer 122 mg/dL (74-106)
[2024-09-07 19:43] VITALS: BP 127/65; PULSE 65; TEMP 36.6; O2SAT 92
[2024-09-07] MEDS: ATORVASTATIN CALCIUM 20 MG TABLET PO (21:20)
[2024-09-07] MEDS: CEFDINIR 300 MG CAPSULE PO (21:20)
[2024-09-07] MEDS: TRAZODONE HCL 50 MG TABLET PO (21:20)
[2024-09-08] MEDS: OXYBUTYNIN chloride 5 MG TABLET PO ×2 (05:20→15:20)
[2024-09-08 05:21] VITALS: BP 139/78; PULSE 66; TEMP 36.4; O2SAT 93
[2024-09-08 06:47] LABS: Hematocrit 43.4 % (42.0-54.0); Hemoglobin 14.6 g/dL (14.0-18.0); Mean Corpuscular HGB Conc 33.6 g/dL (29.9-35.2); Mean Corpuscular Hemoglobin 31.3 pg (25.9-34.0); Mean Corpuscular Volume 93.1 fL (80.0-94.0); Mean Platelet Volume 10.1 fL (9.5-13.5); Platelet Count 206 10^3/uL (150-450); Red Blood Count 4.66 10^6/uL (4.70-6.10); Red Cell Distribution Width 13.5 % (11.0-15.0); White Blood Count 10.4 10^3/uL (4.0-11.0)
[2024-09-08 07:01] LABS: Alanine Aminotransferase 26 U/L (16-63); Albumin Globulin Ratio 0.6; Albumin Level 2.8 g/dL (3.4-5.0); Alkaline Phosphatase 75 U/L (46-116); Anion Gap 16.4; Aspartate Amino Transferase 48 U/L (15-37); BUN Creatinine Ratio 10.3; Bilirubin Total 0.8 mg/dL (0.2-1.0); Calcium 8.9 mg/dL (8.5-10.1); Carbon Dioxide 23.6 mmol/L (21.0-32.0); Chloride 100 mmol/L (98-107); Estimated GFR (African America >60 (>=60 mL/min/1.73m^2); Estimated GFR (Non-African Ame >60 (>=60 mL/min/1.73m^2); Globulin 4.7 g/dL; Glucose 142 mg/dL (74-106); Sodium 136 mmol/L (136-145); Total Protein 7.5 g/dL (6.4-8.2)
--- NOTE | 2024-09-08 08:02 | PM.DS1 ---
DS: Providers Provider Date of admission: 09/04/24 19:28 Primary care physician: CLARICE COMBS MD Consults: 09/05/24 07:53 Physical Therapy Eval and Treat Routine Reason for consultation: generalized weakness 09/05/24 10:23 Occupational Therapy Eval and Treat Routine Reason for consultation: weakness DS: Diagnosis Discharge Diagnosis (1) UTI (urinary tract infection): Qualifiers: Urinary tract infection type: acute cystitis Hematuria presence: without hematuria Qualified Code(s): N30.00 - Acute cystitis without hematuria (2) Generalized weakness: (3) H/O stroke without residual deficits: (4) CAD (coronary artery disease): Qualifiers: Coronary Disease-Associated Artery/Lesion type: [place] artery [place] vs. transplanted heart: [place] heart Associated angina: without angina Qualified Code(s): I25.10 - Atherosclerotic heart disease of [place] coronary artery without angina pectoris (5) Diabetes: Qualifiers: Diabetes mellitus type: type 2 Diabetes mellitus intermission coordinator insulin use: without intermission coordinator use Diabetes mellitus complication status: without complication Qualified Code(s): E11.9 - Type 2 diabetes mellitus without complications (6) Hemiparesis: Qualifiers: Hemiparesis etiology: late effect of cerebrovascular disease Cerebrovascular disease type: cerebral infarction Hemiparesis laterality: right dominant side Qualified Code(s): 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 (7) Hypertension: Qualifiers: Hypertension type: primary hypertension Qualified Code(s): I10 - Essential (primary) hypertension (8) Hyperlipidemia: Qualifiers: Hyperlipidemia type: unspecified Qualified Code(s): E78.5 - Hyperlipidemia, unspecified DS: Summary Time Spent with Patient Time attestation: Total time spent providing and/or coordinating discharge services: Exam Constitutional Vital Signs, click to edit/add: Last Vital Signs Temp 97.6 F 09/08/24 05:21 Pulse 66 09/08/24 05:21 Resp 18 09/08/24 05:21 BP 139/78 09/08/24 05:21 Pulse Ox 93 L 09/08/24 05:21 O2 Del Method Room Air 09/07/24 19:43 DS: Data Data Completed and Pending Labs on day of discharge: Labs from last 24 hours 09/08/24 09/07/24 09/07/24 06:19 19:21 16:21 WBC 10.4 RBC 4.66 L Hgb 14.6 Hct 43.4 MCV 93.1 MCH 31.3 MCHC 33.6 RDW 13.5 Plt Count 206 MPV 10.1 Sodium 136 Potassium 4.0 Chloride 100 Carbon Dioxide 23.6 Anion Gap 16.4 BUN 11.0 Creatinine 1.07 Est GFR ( Amer) >60 Est GFR (Non-Af Amer) >60 BUN/Creatinine Ratio 10.3 Glucose 142 H Calcium 8.9 Total Bilirubin 0.8 AST 48 H ALT 26 Alkaline Phosphatase 75 Total Protein 7.5 Albumin 2.8 L Globulin 4.7 Albumin/Globulin Ratio 0.6 POC Glucose 122 H 148 H 09/07/24 10:42 WBC RBC Hgb Hct MCV MCH MCHC RDW Plt Count MPV Sodium Potassium Chloride Carbon Dioxide Anion Gap BUN Creatinine Est GFR ( Amer) Est GFR (Non-Af Amer) BUN/Creatinine Ratio Glucose Calcium Total Bilirubin AST ALT Alkaline Phosphatase Total Protein Albumin Globulin Albumin/Globulin Ratio POC Glucose 283 H Discharge Plan Discharge Discharge Medications: No Action meclizine 12.5 mg tablet 12.5 mg PO TID PRN (Reason: dizziness) oxybutynin chloride 5 mg tablet 5 mg PO TID ondansetron 4 mg tablet,disintegrating 4 mg PO Q6H PRN (Reason: nausea and vomiting) sulfamethoxazole-trimethoprim 800-160 mg tablet 1 tab PO Q12H Rx Instructions: take for 5days. Started on 09/01/2024 trazodone 50 mg tablet 50 mg PO .hs gabapentin 300 mg capsule 300 mg PO TID furosemide [Lasix] 40 mg tablet 40 mg PO DAILY atorvastatin [Lipitor] 20 mg tablet 20 mg PO QPM lisinopril 2.5 mg tablet 2.5 mg PO DAILY metformin 500 mg tablet extended release 24hr 500 mg PO DAILY polyethylene glycol 3350 [Miralax] 17 gram/dose powder 17 g PO DAILY PRN (Reason: constipation) clopidogrel [Plavix] 75 mg tablet 75 mg PO DAILY cholecalciferol (vitamin D3) [Vitamin D3] 25 mcg (1,000 unit) tablet 25 mcg PO BID Print Language: Yakut
[2024-09-08 08:35] LABS: Atypical Lymphocytes Abs Man 1.14; Band Neutrophils Absolute 0.1 10^3/uL (0.0-0.3); Eosinophils Absolute Manual 0.31 10^3/uL (0.00-0.70); Lymphocytes Absolute Manual 3.74 10^3/uL (1.20-3.80); Segmented Neut Absolute Manual 4.68 10^3/uL (1.4-6.5)
[2024-09-08 09:38] VITALS: BP 143/77; PULSE 69; TEMP 36.3; O2SAT 93
[2024-09-08] MEDS: CEFDINIR 300 MG CAPSULE PO (09:39)
[2024-09-08] MEDS: CLOPIDOGREL BISULFATE 75 MG TABLET PO (09:39)
[2024-09-08] MEDS: CHOLECALCIFEROL (VITAMIN D3) 25 MCG/1,000 UNITS TABLET PO (09:39)
[2024-09-08] MEDS: INSULIN ASPART 300 UNIT/3 ML PEN SUBQ ×2 (09:39→13:46)
--- NOTE | 2024-09-08 10:03 | SWNOTE1 ---
SW emailed Milli at [facility] and also Isela at [facility] to see if pt is approved to go. Waiting to hear back.
--- NOTE | 2024-09-08 10:11 | SWNOTE1 ---
LUIS received email back from Milli at [facility] and she voiced she is waiting for the final approval from [place] and will let LUIS know once she receives this.
--- NOTE | 2024-09-08 11:34 | SWNOTE1 ---
LUIS faxed updated physician notes, PT/OT notes, labs, vitals, and nursing notes to Isela at [facility].
--- NOTE | 2024-09-08 11:39 | CM.NOTE ---
Rounds made with Dr. Barriga, pt up in chair this AM. Pt denies any complaints. Dr. Barriga discussed plan of care with pt and discharge plan to [facility] for skilled when medically stable.
--- NOTE | 2024-09-08 11:59 | PM.PN ---
Progress Note: Subjective Subjective Interval history: Patient sitting up in the chair this morning. Hard of hearing but states no acute complaints. He is amendable to the plan for acute rehab at [facility] in [place], [place]. Currently awaiting on insurance approval. He was started on oral Cefdinir yesterday for his UTI. Wbc's 10.4, Cr 1.07. Exam Narrative Exam Narrative: General: Patient is alert, and oriented to person, place and time with normal affect, proper hygiene Skin: no visible rashes, or ulcers Head: atraumatic, acephalic Eyes: PERRLA, no nystagmus present, conjunctiva clear, no scleral icterus Ears: diminished gross auditory acuity Heart: Normal rate and rhythm, no murmurs/rubs/gallops Lungs: no audible wheezes, crackles and normal breath sounds all lung [place] Abdomen: Normal audible bowel sounds, no distension, No palpable masses, no organomegaly, no rebound/guarding/ or rigidity Musculoskeletal: no swelling bilateral lower extremities, decreased strength on the right upper ext and right lower ext from previous stroke Neuro: CN II-X grossly intact Constitutional Vital Signs, click to edit/add: Last Vital Signs Temp 97.3 F L 09/08/24 09:38 Pulse 69 09/08/24 09:38 Resp 20 09/08/24 09:38 BP 143/77 H 09/08/24 09:38 Pulse Ox 93 L 09/08/24 09:38 O2 Del Method Room Air 09/08/24 09:38 Progress Note: Objective Labs Labs: Short CBC 09/08/24 Range/Units 06:19 WBC 10.4 (4.0-11.0) 10^3/uL Hgb 14.6 (14.0-18.0) g/dL Hct 43.4 (42.0-54.0) % Plt Count 206 (150-450) 10^3/uL BMP 09/08/24 06:19 Sodium 136 Potassium 4.0 Chloride 100 Carbon Dioxide 23.6 BUN 11.0 Creatinine 1.07 Glucose 142 H Calcium 8.9 Liver Function 09/08/24 Range/Units 06:19 Total Bilirubin 0.8 (0.2-1.0) mg/dL AST 48 H (15-37) U/L ALT 26 (16-63) U/L Alkaline Phosphatase 75 (46-116) U/L Albumin 2.8 L (3.4-5.0) g/dL Progress Note: A&P Assessment and Plan (1) UTI (urinary tract infection): Assessment and Plan: continue with cefdinir. Qualifiers: Urinary tract infection type: acute cystitis Hematuria presence: without hematuria Qualified Code(s): N30.00 - Acute cystitis without hematuria (2) Generalized weakness: Assessment and Plan: Improving but would benefit from inpatient rehab, awaiting placement to acute facility (3) CAD (coronary artery disease): Assessment and Plan: continue lipitor and plavix Qualifiers: Coronary Disease-Associated Artery/Lesion type: [place] artery [place] vs. transplanted heart: [place] heart Associated angina: without angina Qualified Code(s): I25.10 - Atherosclerotic heart disease of [place] coronary artery without angina pectoris (4) Diabetes: Assessment and Plan: SSI as needed Qualifiers: Diabetes mellitus type: type 2 Diabetes mellitus fpc insulin use: without fpc use Diabetes mellitus complication status: without complication Qualified Code(s): E11.9 - Type 2 diabetes mellitus without complications (5) Hemiparesis: Assessment and Plan: right side and chronic Qualifiers: Hemiparesis etiology: late effect of cerebrovascular disease Cerebrovascular disease type: cerebral infarction Hemiparesis laterality: right dominant side Qualified Code(s): 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 (6) Hypertension: Assessment and Plan: stable on lisinopril, lasix Qualifiers: Hypertension type: primary hypertension Qualified Code(s): I10 - Essential (primary) hypertension (7) Hyperlipidemia: Assessment and Plan: continue lipitor Qualifiers: Hyperlipidemia type: unspecified Qualified Code(s): E78.5 - Hyperlipidemia, unspecified Plan Patient is a full code Hopeful discharge soon to acute group home facility Urinary Catheter Management Urinary Catheter Management Pure Wick: Cath placed during this visit: yes Urethral indwelling: No Insertion date: 09/04/24 Insertion time: 18:00
[2024-09-08 12:36] LABS: Glucometer 147 mg/dL (74-106)
--- NOTE | 2024-09-08 13:36 | SWNOTE1 ---
LUIS received a call from Milli at [facility] and she did receive approval. LUIS asked if she needs anything else from LUIS, she stated no and she will touch base with Isela. LUIS reached out to Isela at [facility] and let her know about approval. She stated they are ready for him at any time. LUIS completed HENS. LUIS advised nurse and doctor that pt is approved. LUIS called pt's son Prateek Randle and informed him of approval. He is in agreement and still wants him to go to [facility] as first choice. LUIS let pt know and he is still in agreement with facility as first choice. LUIS to send orders once available.
--- NOTE | 2024-09-08 15:00 | PM.DS1 ---
DS: Providers Provider Date of admission: 09/04/24 19:28 Primary care physician: CLARICE COMBS MD Admitting clinician: Shaikh Gerardo Consults: 09/05/24 07:53 Physical Therapy Eval and Treat Routine Reason for consultation: generalized weakness 09/05/24 10:23 Occupational Therapy Eval and Treat Routine Reason for consultation: weakness Discharging clinician: Radha Barriga DS: Diagnosis Discharge Diagnosis (1) UTI (urinary tract infection): Qualifiers: Urinary tract infection type: acute cystitis Hematuria presence: without hematuria Qualified Code(s): N30.00 - Acute cystitis without hematuria (2) Generalized weakness: (3) CAD (coronary artery disease): Qualifiers: Coronary Disease-Associated Artery/Lesion type: [place] artery [place] vs. transplanted heart: [place] heart Associated angina: without angina Qualified Code(s): I25.10 - Atherosclerotic heart disease of [place] coronary artery without angina pectoris (4) Diabetes: Qualifiers: Diabetes mellitus type: type 2 Diabetes mellitus termite helper insulin use: without chcf use Diabetes mellitus complication status: without complication Qualified Code(s): E11.9 - Type 2 diabetes mellitus without complications (5) Hemiparesis: Qualifiers: Hemiparesis etiology: late effect of cerebrovascular disease Cerebrovascular disease type: cerebral infarction Hemiparesis laterality: right dominant side Qualified Code(s): 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 (6) Hypertension: Qualifiers: Hypertension type: primary hypertension Qualified Code(s): I10 - Essential (primary) hypertension (7) Hyperlipidemia: Qualifiers: Hyperlipidemia type: unspecified Qualified Code(s): E78.5 - Hyperlipidemia, unspecified DS: Summary Hospital Course Hospital Course: Please see progress note dated 09/08/24, patient will be transferred to [facility] today. He will be treated with 7 days of cefdinir 300mg BID. Continue all other home meds. Status at Discharge Functional status at discharge: uses cane/walker Overall status at discharge: patient is progressing back to baseline Time Spent with Patient Time attestation: Total time spent providing and/or coordinating discharge services: Time spent: greater than 30 minutes Exam Narrative Exam Narrative: no changes on discharge exam from progress note dated 09/08/24 Constitutional Vital Signs, click to edit/add: Last Vital Signs Temp 97.3 F L 09/08/24 09:38 Pulse 69 09/08/24 09:38 Resp 20 09/08/24 09:38 BP 143/77 H 09/08/24 09:38 Pulse Ox 93 L 09/08/24 09:38 O2 Del Method Room Air 09/08/24 09:38 DS: Data Data Completed and Pending Labs on day of discharge: Labs from last 24 hours 09/08/24 09/08/24 09/07/24 12:25 06:19 19:21 WBC 10.4 RBC 4.66 L Hgb 14.6 Hct 43.4 MCV 93.1 MCH 31.3 MCHC 33.6 RDW 13.5 Plt Count 206 MPV 10.1 Seg Neuts % (Manual) 45.0 Band Neutrophils % 1.0 Lymphocytes % (Manual) 36.0 Atypical Lymphs % (Man) 11.0 Monocytes % (Manual) 1.0 L Eosinophils % (Manual) 3.0 Basophils % (Manual) 0.0 L Neutrophils # (Manual) 4.68 Band Neutrophils # 0.1 Lymphocytes # (Manual) 3.74 Abs Atypical Lymphs Man 1.14 Monocytes # (Manual) 0.10 L Eosinophils # (Manual) 0.31 Basophils # (Manual) 0.00 Differential Comment Sodium 136 Potassium 4.0 Chloride 100 Carbon Dioxide 23.6 Anion Gap 16.4 BUN 11.0 Creatinine 1.07 Est GFR ( Amer) >60 Est GFR (Non-Af Amer) >60 BUN/Creatinine Ratio 10.3 Glucose 142 H Calcium 8.9 Total Bilirubin 0.8 AST 48 H ALT 26 Alkaline Phosphatase 75 Total Protein 7.5 Albumin 2.8 L Globulin 4.7 Albumin/Globulin Ratio 0.6 POC Glucose 147 H 122 H 09/07/24 16:21 WBC RBC Hgb Hct MCV MCH MCHC RDW Plt Count MPV Seg Neuts % (Manual) Band Neutrophils % Lymphocytes % (Manual) Atypical Lymphs % (Man) Monocytes % (Manual) Eosinophils % (Manual) Basophils % (Manual) Neutrophils # (Manual) Band Neutrophils # Lymphocytes # (Manual) Abs Atypical Lymphs Man Monocytes # (Manual) Eosinophils # (Manual) Basophils # (Manual) Differential Comment Sodium Potassium Chloride Carbon Dioxide Anion Gap BUN Creatinine Est GFR ( Amer) Est GFR (Non-Af Amer) BUN/Creatinine Ratio Glucose Calcium Total Bilirubin AST ALT Alkaline Phosphatase Total Protein Albumin Globulin Albumin/Globulin Ratio POC Glucose 148 H Discharge Plan Discharge Disposition: Xfer SNF Discharge Medications: New cefdinir 300 mg Capsule 300 mg PO BID 7 Days Qty: 14 0RF Continued meclizine 12.5 mg tablet 12.5 mg PO TID PRN (Reason: dizziness) oxybutynin chloride 5 mg tablet 5 mg PO TID ondansetron 4 mg tablet,disintegrating 4 mg PO Q6H PRN (Reason: nausea and vomiting) trazodone 50 mg tablet 50 mg PO .hs gabapentin 300 mg capsule 300 mg PO TID furosemide [Lasix] 40 mg tablet 40 mg PO DAILY atorvastatin [Lipitor] 20 mg tablet 20 mg PO QPM lisinopril 2.5 mg tablet 2.5 mg PO DAILY metformin 500 mg tablet extended release 24hr 500 mg PO DAILY polyethylene glycol 3350 [Miralax] 17 gram/dose powder 17 g PO DAILY PRN (Reason: constipation) clopidogrel [Plavix] 75 mg tablet 75 mg PO DAILY cholecalciferol (vitamin D3) [Vitamin D3] 25 mcg (1,000 unit) tablet 25 mcg PO BID Discontinued sulfamethoxazole-trimethoprim 800-160 mg tablet 1 tab PO Q12H Rx Instructions: take for 5days. Started on 09/01/2024 Print Language: [place]ian Pharmacy Clinical Coordinator/Turner Off Instructions: Discharge to [facility] skilled Forms: Portal Instructions
[2024-09-08 15:22] VITALS: BP 148/76; PULSE 66; TEMP 36.3; O2SAT 92
--- NOTE | 2024-09-08 16:31 | PC.NURSE ---
report given to Valerie at [facility]. All questions answered
== END 2024-09-08 16:27 ==
PROVIDERS: Registered Nurse; Admitting Provider Internal Medicine; Family Provider Urology; PCP Internal Medicine; Visit Provider Family Medicine
DX: N30.00 Acute cystitis without hematuria (principal); R53.1 Weakness; I69.351 Hemiplegia and hemiparesis following cerebral infarction affecting right dominant side; I25.10 Atherosclerotic heart disease of native coronary artery without angina pectoris; E11.9 Type 2 diabetes mellitus without complications; I10 Essential (primary) hypertension; E78.5 Hyperlipidemia, unspecified; Z79.84 Long term (current) use of oral hypoglycemic drugs; Z95.1 Presence of aortocoronary bypass graft; Z90.49 Acquired absence of other specified parts of digestive tract; G93.41 Metabolic encephalopathy; E86.0 Dehydration
CPT/HCPCS: 36415; 73502; 80053; 82948; 85007; 85025; 85027; 96361; 96365; 96366; 97110; 97161; 97166; 97530; 97535; G0378; G0379; J0696